=== PATIENT | male | born 1960 | race Caucasian/White ===

== ENCOUNTER 2017-02-15 18:39 | Observation (INO) | payer OTHER ==
[~2017-02-15] VITALS: Ht 177.8 cm; Wt 80.0 kg
[2017-02-15] MEDS ORDERED: NICOTINE 21 MG/24 HR PATCH.TD24 ONE (19:40)
[2017-02-15] MEDS ORDERED: NICOTINE 21 MG/24 HR PATCH.TD24 TD ONE (20:00)
[2017-02-15 20:03] LABS: BLOOD UREA NITROGEN 16 mg/dL (7-18)
[2017-02-15 20:07] LABS: ACETAMINOPHEN < 2 mcg/mL (10-30)
[2017-02-16 09:36] LABS: DAU SCREEN DISCLAIMER
[2017-02-16] MEDS ORDERED: NICOTINE 14MG/24 HR PATCH.TD24 ONE (10:29)
[2017-02-16] MEDS ORDERED: NICOTINE 14MG/24 HR PATCH.TD24 TD ONE (10:30)
[2017-02-16] MEDS ORDERED: ESCI20TA10 PO (11:08)
[2017-02-16] MEDS ORDERED: ALPR-475 PO (11:08)
[2017-02-16] MEDS ORDERED: ONDANSETRON ODT 4 MG PO PRN (13:00)
[2017-02-16] MEDS ORDERED: POLYETHYLENE GLYCOL 17 GM PACKET PO PRN (13:00)
[2017-02-16 13:30] VITALS: BP 148/85
[2017-02-16 14:41] VITALS: BP 148/85
[2017-02-16 19:22] VITALS: BP 162/88
[2017-02-17 07:02] LABS: BLOOD UREA NITROGEN 20 mg/dL (7-18)
[2017-02-17 07:05] LABS: ASPARTATE AMINO TRANSFERASE 8 U/L (15-37)
[2017-02-17 08:16] VITALS: BP 160/98
[2017-02-17] MEDS: SENNA/DOCUSATE TABLET PO SCH (09:00)
[2017-02-17 19:35] VITALS: BP 149/84
[2017-02-17] MEDS: NICOTINE 7 MG/24 HR PATCH.TD24 TD SCH (21:32)
[2017-02-18 07:38] VITALS: BP 142/92
[2017-02-18] MEDS: SENNA/DOCUSATE TABLET PO SCH (08:46)
[2017-02-18] MEDS ORDERED: LORazepam 1MG TABLET PO PRN (16:30)
[2017-02-18 19:50] VITALS: BP_SYST 106; BP_SYST 152; BP_DIAS 70; BP_DIAS 92
[2017-02-18] MEDS: NICOTINE 7 MG/24 HR PATCH.TD24 TD SCH (21:00)
[2017-02-19 07:51] VITALS: BP 172/95
[2017-02-19] MEDS: SENNA/DOCUSATE TABLET PO SCH (08:53)
[2017-02-19 19:58] VITALS: BP 162/89
== END 2017-02-19 23:10 ==
LOC: ED 23:59 → EDIP 02-16 11:05 → 3E 02-16 13:02
PROVIDERS: ADMIT Hospitalist; ATTEND Hospitalist
DX: R45.851 Suicidal ideations (principal); F41.9 Anxiety disorder, unspecified; F32.9 Major depressive disorder, single episode, unspecified; F17.200 Nicotine dependence, unspecified, uncomplicated; Z83.3 Family history of diabetes mellitus
CPT/HCPCS: 36415; 80048; 80053; 80307; 80329; 82040; 84439; 84443; 85025; 85610; 93005; 99285; G0378; G0480

== ENCOUNTER 2017-04-11 15:13 | Emergency (ER) | payer OTHER ==
[~2017-04-11] VITALS: Ht 175.3 cm; Wt 80.0 kg
[~2017-04-11 15:13] MED LIST: ALPR-475 PO; ESCI20TA10 PO
[2017-04-11 16:04] VITALS: BP 106/71
== END 2017-04-11 16:12 | disposition short-term general hospital (02) ==
LOC: ED 15:39
DX: S31.101A Unspecified open wound of abdominal wall, left upper quadrant without penetration into peritoneal cavity, initial encounter (principal); W26.0XXA Contact with knife, initial encounter; Y93.89 Activity, other specified; Y92.89 Other specified places as the place of occurrence of the external cause; Y99.8 Other external cause status
CPT/HCPCS: 99285